=== PATIENT | female | born 1955 | race Caucasian/White ===

== ENCOUNTER 2018-04-26 01:05 | Observation (INO) | payer BC, OTHER ==
[~2018-04-26] VITALS: Ht 172.7 cm; Wt 95.3 kg
[2018-04-26 02:28] LABS: Basophils % (auto) 0.5 % (0.0-2.0); Eosinophils % (auto) 0.2 % (0.0-7.0)
[2018-04-26 02:29] LABS: Basophils # (auto) 0.1 uL; Eosinophils # (auto) 0 uL; Neutrophils # (auto) 11.1 uL; Red Blood Cells 3.72 10^6/uL (4.0-5.20)
[2018-04-26 02:30] LABS: Hematocrit 28.8 % (36.0-46.0); Hemoglobin 9.1 g/dL (12.2-16.2); Lymphocytes # (auto) 1.1 uL; Lymphocytes % (auto) 8.7 % (10.0-50.0); Mean Corpuscular Hemoglobin 24.4 pg (28.0-32.0); Mean Corpuscular Hgb Conc. 31.5 g/dL (32.0-36.0); Mean Corpuscular Volume 77.5 fL (80.0-100.0); Monocytes # (auto) 0.5 uL; Monocytes % (auto) 4.1 % (0.0-12.0); Neutrophils % (auto) 86.5 % (37.0-80.0); Platelet Count (auto) 275 10^3/uL (140-450); Red Cell Distribution Width 18.5 % (11.8-14.3); White Blood Cell 12.9 10^3/uL (4.4-10.8)
[2018-04-26] MEDS ORDERED: ALUM & MAG HYDROX-SIMETH LIQ(MAALOX) 30 ML PO ONE (02:30)
[2018-04-26] MEDS ORDERED: LIDOCAINE VISCOUS 2% 15ML UD PO ONE (02:30)
[2018-04-26] MEDS ORDERED: DONNATAL 5ml ORAL Elix (BELLADONNA ALK-PHENOBARB) PO ONE (02:30)
[2018-04-26] MEDS ORDERED: ONDANSETRON HCL 4 MG/2 ML VIAL IV ONE (02:45)
[2018-04-26 02:46] LABS: Albumin 2.6 g/dL (3.4-5.0); BUN/Creatinine Ratio 59.2; Calcium 8.2 mg/dL (8.5-10.1); Potassium 4.1 mmol/L (3.5-5.1)
[2018-04-26 02:49] LABS: Bilirubin, Total 0.4 mg/dL (0.2-1.0); Total Protein 6.3 g/dL (6.4-8.2)
[2018-04-26 04:52] VITALS: BP 116/75
== END 2018-04-26 04:56 | disposition home or self-care (01) | DRG 392 ==
LOC: ER 01:05 → EDBD 01:05 → OVERFLOW 01:06 → ER 04:51
PROVIDERS: ADMIT Anesthesiology; ATTEND Anesthesiology
DX: K44.9 Diaphragmatic hernia without obstruction or gangrene (principal); K21.9 Gastro-esophageal reflux disease without esophagitis
CPT/HCPCS: 36415; 71045; 80053; 82150; 83690; 85025; 96374; 99285; G0378; J2405